=== PATIENT | male | born 1985 | race Caucasian/White ===

== ENCOUNTER 2016-11-27 02:55 | Emergency (ER) | payer SELFPAY ==
[2016-11-27 03:33] VITALS: BP 134/79; PULSE 74; TEMP 97.5; BMI 23.1
[2016-11-27] MEDS ORDERED: OXYCODONE/APAP 5/325MG COMBO TABLET PO ONE (04:35)
[2016-11-27] MEDS ORDERED: KETOROLAC TROMETHAMINE 60 MG/2 ML VIAL IM ONE (04:35)
[2016-11-27] MEDS ORDERED: OXYCODONE/APAP 5/325MG COMBO TABLET ONE (04:42)
[2016-11-27] MEDS ORDERED: KETOROLAC TROMETHAMINE 60 MG/2 ML VIAL ONE (04:42)
--- NOTE | 2016-11-27 04:44 | PDOC ---
History of Present Illness - General Chief Complaint: Hemorrhoids Stated Complaint: HEMORRHOID Time Seen by Provider: 11/27/16 03:23 History Source: Patient Exam Limitations: No Limitations - History of Present Illness Initial Comments: 11/27/16 04:36 31yo Male patient w/ PmHx: Hemorrhoids presents to ED c/o acute on chronic Hemorrhoid pain worsening over the past 3 days. Patient states he has tried preparation H with no relief. He denies any other complaints at this time. Severity: severe Modifying Factors: improves with: medication Associated Symptoms: denies: denies symptoms, chest pain, cough, diaphoresis, fever/chills, headaches, loss of appetite, malaise, nausea/vomiting, rash, seizure, shortness of breath, syncope, weakness, other Aspirin Received prior to arrival: No: no aspirin today, unknown, 81 mg x 1, 81 mg x 2, 81 mg x 3, 81 mg x 4, 325 mg x 1, provided at home, provided by EMS, provided by ED [facility] Contraindications(Core Measure): No: Allergy, Other, Active Blding w/i 24 hrs., Plavix, Receiving Warfarin Past History - Travel Traveled outside of the country in the last 30 days: No Close contact w/someone who was outside of country & ill: No - Past Medical History Allergies/Adverse Reactions: Allergies Allergy/AdvReac Type Severity Reaction Status Date / Time No Known Allergies Allergy Verified 11/27/16 03:33 Home Medications: Ambulatory Orders Docusate Sodium [Colace -] 100 mg PO TID #30 capsule 11/27/16 Hydrocortisone 0.5% Cream [Hytone 0.5% Cream -] 1 applic TP BID #1 tube Oxycodone HCl/Acetaminophen [Oxycodone-Acetaminophen 10-325] 1 each PO Q4H PRN # 30 tablet MDD 6 tab 11/27/16 Polyethylene Glycol 3350 [Miralax (For Bowel Prep) -] 17 gm PO DAILY #1 bottle 11/27/16 - Psycho/Social/Smoking Cessation Hx Suicidal Ideation: No Smoking History: Current every day smoker Have you smoked in the past 12 months: Yes Number of Cigarettes Smoked Daily: 10 Information on smoking cessation initiated: No Hx Alcohol Use: No Drug/Substance Use Hx: No Review of Systems - Review of Systems Able to Perform ROS?: Yes Is the patient limited [place] proficient: No Constitutional: No: Chills, Fever Respiratory: No: Shortness of Breath, Stridor, Wheezing, Productive cough, Hemoptysis Cardiac (ROS): No: Chest Pain, Edema, Palpitations, Syncope, Chest Tightness ABD/GI: Yes: Other (Numerous Hemorrhoids (Non -Bleeding)). No: Constipated, Diarrhea, Nausea, Poor Appetite, Poor Fluid Intake, Vomiting, Abdominal cramping : No: Burning, Dysuria, Flank Pain, Hematuria Musculoskeletal: No: Back Pain All Other Systems: Reviewed and Negative *Physical Exam - Vital Signs Last Vital Signs Temp Pulse Resp BP Pulse Ox 97.5 F L 74 19 134/79 98 11/27/16 03:11/27/16 03:11/27/16 03:11/27/16 03:11/27/16 03:31 - Physical Exam General Appearance: Yes: Nourished, Appropriately Dressed, Moderate Distress. No: Apparent Distress, Mild Distress, Severe Distress Neck: positive: Trachea midline, Normal Thyroid, Supple. negative: Rigid Respiratory/Chest: positive: Lungs Clear, Normal Breath Sounds. negative: Chest Tender, Respiratory Distress, Accessory Muscle Use, Labored Respiration, Rapid RR Cardiovascular: positive: Regular Rhythm, Regular Rate Gastrointestinal/Abdominal: positive: Normal Bowel Sounds, Soft. negative: Distended, Guarding, Rebound, Tenderness Rectal Exam: positive: normal rectal tone, hemorrhoids (Numerous) Musculoskeletal: positive: Normal Inspection. negative: CVA Tenderness Extremity: positive: Normal Capillary Refill, Normal Inspection, Normal Range of Motion. negative: Pedal Edema, Swelling, Calf Tenderness, Erythema, Inflammation Integumentary: positive: Normal Color, Dry, Warm. negative: Erythema, Rash, Swelling, Bruising Neurologic: positive: therapy site coordinator II-XII NML intact, Fully Oriented, Alert, Normal Mood/ Affect, Normal Response, Motor Strength 5/5 *DC/Admit/Observation/Transfer Diagnosis at time of Disposition: Hemorrhoids Qualifiers: Hemorrhoid type: second degree Qualified Code(s): K64.1 - Second degree hemorrhoids - Discharge Dispostion Disposition: HOME Condition at time of disposition: Stable Admit: No - Prescriptions Prescriptions: Docusate Sodium [Colace -] 100 mg PO TID #30 capsule Hydrocortisone 0.5% Cream [Hytone 0.5% Cream -] 1 applic TP BID #1 tube Polyethylene Glycol 3350 [Miralax (For Bowel Prep) -] 17 gm PO DAILY #1 bottle Oxycodone HCl/Acetaminophen [Oxycodone-Acetaminophen 10-325] 1 each PO Q4H PRN # 30 tablet MDD 6 tab PRN Reason: Severe Pain - Referrals Referrals: Delicia Nassar MD [Primary Care Provider] - Hiren Kelly MD [Staff Physician] - - Patient Instructions Printed Discharge Instructions: DI for Hemorrhoids Additional Instructions: FOLLOW UP WITH DR. KELLY (SURGERY) REGARDING HEMORRHOIDS. CALL TO SCHEDULE APPOINTMENT. TAKE MEDICATIONS PRESCRIBED. DO NOT DRIVE, DRINK ALCOHOL, OR OPERATE HEAVY MACHINERY WHILE TAKING OXYCODONE. COLACE- STOOL SOFTENER OXYCODONE- PAIN MANAGEMENT MIRALAX- FIBER HYDROCORTISONE CREAM- DO NOT USE MORE THAN 7 DAYS TO RECTUM. THIS CAN INCREASE CHANCE OF TEAR DUE TO THINNING OF TISSUE. Print Language: KINYARWANDA
== END 2016-11-27 05:16 | disposition home or self-care (01) ==
LOC: JER 02:55
PROC: 3E0233Z Introduction of Anti-inflammatory into Muscle, Percutaneous Approach (ICD-10-PCS; principal; 2016-11-27)
DX: K64.1 Second degree hemorrhoids (principal)
CPT/HCPCS: 99282-25

== ENCOUNTER 2017-11-27 07:26 | Emergency (ER) | payer SELFPAY ==
[2017-11-27 07:33] VITALS: BP 127/80; PULSE 81; TEMP 98.2; BMI 26.0
[2017-11-27] MEDS ORDERED: IBUPROFEN 400 MG TABLET (FP) PO ONE ×2 (07:57→08:05)
--- NOTE | 2017-11-27 08:02 | PDOC ---
Attending Attestation - Resident Resident Name: Abimael Collazo - ED Attending Attestation I have performed the following: I have examined & evaluated the patient, The case was reviewed & discussed with the resident, I agree w/resident's findings & plan, Exceptions are as noted - HPI HPI: 11/27/17 08:00 32M no pmhx presents with stubbed toe. pt banged his L foot into bedpost yesterday, pain at the 3rd toe no numbness/tingling/weakness no other injuries - Physicial Exam PE: 11/27/17 08:20 L foot exam: mild tenderness to 3rd L toe, slight ecchymosis on medial aspect, no deformity, sensation intact thorughout, no open wounds - Medical Decision Making 11/27/17 08:21 xray neg for fx suspect contusion motrin/tylenol for pain
--- NOTE | 2017-11-27 08:07 | PDOC ---
History of Present Illness - General Chief Complaint: Injury Stated Complaint: FOOT INJURY Time Seen by Provider: 11/27/17 07:49 History Source: Patient Exam Limitations: No Limitations - History of Present Illness Initial Comments: 11/27/17 08:02 Patient is a 32M with no significant medical history here today complaining of left toe pain. Patient states that he stubbed his toe last night against his bedframe. Patient is able to walk, but with pain. Denies fevers, chills, nausea , vomiting. Denies chest pain and shortness of breath. Able to move toe without pain. No pain in toenail. Past History - Past Medical History Allergies/Adverse Reactions: Allergies Allergy/AdvReac Type Severity Reaction Status Date / Time No Known Allergies Allergy Verified 11/27/17 07:28 Home Medications: Ambulatory Orders NK [No Known Home Medication] 11/27/17 COPD: No - Immunization History Immunization Up to Date: No - Suicide/Smoking/Psychosocial Hx Smoking History: Current every day smoker Have you smoked in the past 12 months: Yes Number of Cigarettes Smoked Daily: 30 Information on smoking cessation initiated: Yes 'Breaking Loose' booklet given: 11/27/17 Hx Alcohol Use: No Drug/Substance Use Hx: No Substance Use Type: None Review of Systems - Review of Systems Comments:: 11/27/17 08:04 GENERAL/CONSTITUTIONAL: No fever or chills. No weakness. HEAD, EYES, EARS, NOSE AND THROAT: No change in vision. No sore throat. CARDIOVASCULAR: No chest pain or shortness of breath RESPIRATORY: No cough, wheezing, or hemoptysis. GASTROINTESTINAL: No nausea, vomiting, diarrhea or constipation. GENITOURINARY: No dysuria, frequency, or change in urination. MUSCULOSKELETAL: Positive for left toe pain. No neck or back pain. SKIN: No rash NEUROLOGIC: No headache, vertigo, loss of consciousness, or change in strength/ sensation. HEMATOLOGIC/LYMPHATIC: No anemia, easy bleeding, or history of blood clots. ALLERGIC/IMMUNOLOGIC: No hives or skin allergy. *Physical Exam - Vital Signs Last Vital Signs Temp Pulse Resp BP Pulse Ox 98.2 F 81 18 127/80 100 11/27/17 07:29 11/27/17 07:29 11/27/17 07:29 11/27/17 07:29 11/27/17 07:29 - Physical Exam Comments: 11/27/17 08:04 GENERAL: Awake, alert, and fully oriented, in no acute distress L FOOT: Small hematoma in middle toe, no toenail involvement, neurovascularly intact, good cap refill, ROM intact HEAD: No signs of trauma, normocephalic, atraumatic EYES: PERRLA, EOMI, sclera anicteric, conjunctiva clear ENT: Auricles normal inspection, hearing grossly normal, nares patent, oropharynx clear without exudates. Moist mucosa LUNGS: No distress, speaks full sentences, clear to auscultation bilaterally HEART: Regular rate and rhythm, normal S1 and S2, no murmurs, rubs or gallops, peripheral pulses normal and equal bilaterally. EXTREMITIES: Normal inspection, Normal range of motion, no edema. No clubbing or cyanosis. NEUROLOGICAL: Cranial nerves II through XII grossly intact. Normal speech, no focal sensorimotor deficits SKIN: Warm, Dry, normal turgor, no rashes or lesions noted. ED Treatment Course - RADIOLOGY Radiology Studies Ordered: Category Date Time Status TOE(S) LEFT [RAD] Stat Radiology 11/27/17 07:57 Ordered Medical Decision Making - Medical Decision Making 11/27/17 08:05 Patient is 32M here today with toe pain. Low suspicion of fracture. Will treat with ibuprofen and evaluate with x-ray. Discharge home. 11/27/17 08:16 X-ray shows no fracture. Will discharge home with return precautions and PCP referral. *DC/Admit/Observation/Transfer Diagnosis at time of Disposition: Toe pain - Discharge Dispostion Disposition: HOME Condition at time of disposition: Good Decision to Admit order: No - Referrals Referrals: [facility] [place] [Provider Group] - Patient Instructions Printed Discharge Instructions: DI for Toe Sprain Additional Instructions: Please return if you have any new, worsening or concerning symptoms. Please follow up with your primary care physician, a referral has been provided for you in your paperwork. - Post Discharge Activity
== END 2017-11-27 08:21 | disposition home or self-care (01) ==
LOC: JER 07:26
DX: M79.675 Pain in left toe(s) (principal); F17.210 Nicotine dependence, cigarettes, uncomplicated; W22.01XA Walked into wall, initial encounter; Y93.89 Activity, other specified; Y92.9 Unspecified place or not applicable
CPT/HCPCS: 73660-TC-FY; 99281-25

== ENCOUNTER 2022-05-02 22:00 | Emergency (ER) | payer OTHER ==
[2022-05-02 22:33] VITALS: BP 117/75; PULSE 100; RESP 17; TEMP 98.1; BMI 27.1
[2022-05-02] MEDS ORDERED: HYDROCORTISONE ACETATE 25 MG/SUPP.RECT PR ONE (23:03)
[2022-05-02] MEDS ORDERED: KETOROLAC TROMETHAMINE 30 MG/1 ML VIAL IM ONE (23:03)
[2022-05-02] MEDS ORDERED: KETOROLAC TROMETHAMINE 30 MG/1 ML VIAL ONE (23:14)
== END 2022-05-02 23:35 | disposition home or self-care (01) ==
LOC: JER 22:00
PROC: 3E023GC Introduction of Other Therapeutic Substance into Muscle, Percutaneous Approach (ICD-10-PCS; principal; 2022-05-02)
DX: K64.9 Unspecified hemorrhoids (principal)
CPT/HCPCS: 99284-25

== ENCOUNTER 2025-04-23 13:47 | Emergency (ER) | payer OTHER ==
[2025-04-23 13:58] VITALS: BP 133/83; PULSE 74; RESP 18; TEMP 97.5; BMI 29.0
[2025-04-23] MEDS ORDERED: KETOROLAC TROMETHAMINE 30 MG/1 ML VIAL IM ONE (14:20)
[2025-04-23] MEDS ORDERED: LIDOCAINE 4% PATCH TP ONE ×2 (14:20→14:27)
[2025-04-23] MEDS ORDERED: ACETAMINOPHEN 500 MG TABLET (FP) PO ONE (14:20)
[2025-04-23] MEDS ORDERED: ACETAMINOPHEN 500 MG TABLET (FP) ONE (14:26)
[2025-04-23] MEDS ORDERED: KETOROLAC TROMETHAMINE 30 MG/1 ML VIAL ONE (14:26)
[2025-04-23] MEDS ORDERED: LIDOCAINE PATCH REMOVAL MC ONE (22:00)
== END 2025-04-23 15:00 | disposition home or self-care (01) ==
LOC: JERFT 13:47 → JER 13:47 → JERFT 15:00
DX: M54.50 Low back pain, unspecified (principal); G89.29 Other chronic pain
CPT/HCPCS: 99283-25